=== PATIENT | female | born 1970 | race Caucasian/White ===

== ENCOUNTER 2019-01-04 17:43 | Emergency (ER) | payer OTHER ==
[2019-01-04 17:52] VITALS: TEMP 98.1; BMI 28.1
[2019-01-04] MEDS ORDERED: IBUPROFEN 600 MG TABLET (FP) PO ONE ×2 (18:26→18:29)
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
[2019-01-04 19:04] VITALS: BP 106/59; PULSE 70
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
== END 2019-01-04 19:04 | disposition home or self-care (01) ==
LOC: JER 17:43
DX: S16.1XXA Strain of muscle, fascia and tendon at neck level, initial encounter (principal); M25.562 Pain in left knee; V43.52XA Car driver injured in collision with other type car in traffic accident, initial encounter; Y92.414 Local residential or business street as the place of occurrence of the external cause; Y93.89 Activity, other specified; Y99.8 Other external cause status
CPT/HCPCS: 99283-25